=== PATIENT | male | born 1990 | race Caucasian/White ===

== ENCOUNTER 2024-04-29 14:23 | Emergency (ER) | payer MEDICAID ==
[~2024-04-29] VITALS: Ht 175.3 cm; Wt 80.0 kg
[2024-04-29 14:29] VITALS: O2SAT 98
[2024-04-29] MEDS: CEFTRIAXONE 1GM/50ML 50 ML IV ONE (14:30)
[2024-04-29] MEDS: TETANUS, DIPHTHERIA, PERTUSSIS VAC/PF 0.5ML (>10YR OLD) IM ONE (15:33)
[2024-04-29] MEDS: MORPHINE SULFATE 4 MG/ML INJ (FOR IV/IM USE) IV NR (16:41)
[2024-04-29] MEDS ORDERED: SULF1TAB48 MT (18:27)
[2024-04-29] MEDS: MORPHINE SULFATE 4 MG/ML INJ (FOR IV/IM USE) IM NR (19:08)
[2024-04-29 19:51] VITALS: BP 100/59; PULSE 68; RESP 16; TEMP 98.4
== END 2024-04-29 22:14 | disposition home or self-care (01) ==
LOC: ER 14:23
DX: S90.552A Superficial foreign body, left ankle, initial encounter (principal); Z87.821 Personal history of retained foreign body fully removed; X58.XXXA Exposure to other specified factors, initial encounter; Y93.89 Activity, other specified; Y92.89 Other specified places as the place of occurrence of the external cause; Y99.8 Other external cause status
CPT/HCPCS: 73610; 90715; 20520; 90471; 96365; 96366; 96372; 99285; J0696; J2270; Z7610 ×4